=== PATIENT | male | born 1955 | race American Indian/Alaskan Native ===

== ENCOUNTER 2017-10-31 06:50 | Day surgery (SDC) | payer MEDICARE ==
[2017-10-31] MEDS ORDERED: ANCEF/STERILE WATER 2 GM/20 ML IV NR (07:00)
[2017-10-31 09:00] LABS: Basophils # (Auto) 0.1 K/mm3 (0.0-0.1); Basophils % (Auto) 2.8 % (0.0-1.8); Eosinophils # (Auto) 0.3 K/mm3 (0.0-0.4); Eosinophils % (Auto) 7.3 % (0.0-4.3); Hemoglobin 11.1 gm/dl (11.8-15.2); Lymphocytes # (Auto) 1.4 K/mm3 (1.2-5.4); Lymphocytes % (Auto) 34.1 % (13.4-35.0); Mean Corpuscular HGB Conc 34 % (32-34); Mean Corpuscular Hemoglobin 31 pg (28-32); Mean Corpuscular Volume 92 fl (84-94); Monocytes # (Auto) 0.4 K/mm3 (0.0-0.8); Monocytes % (Auto) 9.3 % (0.0-7.3); Platelet Count 223 K/mm3 (140-440); Red Cell Distribution Width 14.4 % (13.2-15.2)
[2017-10-31] MEDS ORDERED: VERSED IV NR (09:00)
[2017-10-31] MEDS ORDERED: LACTATED RINGERS 1,000 ML IV SCH (09:00)
--- NOTE | 2017-10-31 09:00 | Anesthesia Consultation ---
Anesthesia Consult and Med Hx Date of service: 10/31/17 - Airway Anesthetic Teeth Evaluation: Dentures ROM Head & Neck: Adequate Mental/Hyoid Distance: Adequate Mallampati Class: Class III Intubation Access Assessment: Possibly Difficult - Pulmonary Exam CTA: Yes - Cardiac Exam Cardiac Exam: RRR - Pre-Operative Health Status ASA Pre-Surgery Classification: ASA2 Proposed Anesthetic Plan: General - Pulmonary Hx Smoking: Yes (CIGARS) Hx Asthma: No Hx Respiratory Symptoms: No SOB: No Hx Sleep Apnea: No (ABY PRE SCREEN HIGH RISK) - Cardiovascular System Hx Hypertension: Yes Hx Heart Attack/AMI: No - Central Nervous System Hx Seizures: No CVA: No Hx Back Pain: Yes (2/2 renal stones) - Gastrointestinal Hx Gastroesophageal Reflux Disease: No - Endocrine Hx Renal Disease: No Hx Liver Disease: No Hx Non-Insulin Dependent Diabetes: Yes ("pre-diabetes") Hx Thyroid Disease: No - Hematic Hx Anemia: Yes - Other Systems Hx Alcohol Use: Yes (BEER EVERY OTHER DAY) Hx Obesity: Yes
--- NOTE | 2017-10-31 09:00 | Anesthesia Day of Surgery ---
Anesthesia Day of Surgery - Day of Surgery Patient Examined: Yes Patient H&P Reviewed: Yes Patient is NPO: Yes
[2017-10-31] MEDS ORDERED: XYLOCAINE MPF 2% ONE (09:24)
[2017-10-31] MEDS ORDERED: SUBLIMAZE ONE (09:24)
[2017-10-31] MEDS ORDERED: DIPRIVAN 10 MG/ML IV ONE (09:24)
[2017-10-31] MEDS ORDERED: WATER FOR IRRIG STERILE IR ONE ×3 (10:52→10:53)
[2017-10-31] MEDS ORDERED: ZOFRAN ONE (11:56)
--- NOTE | 2017-10-31 12:04 | Short Stay Summary ---
Short Stay Documentation Date of service: 10/31/17 - History H&P: obtained from office - Allergies and Medications Current Medications: Allergies No Known Allergies Allergy (Verified 10/28/17 11:07) Home Medications Medication Instructions Recorded Confirmed Last Taken Type Atenolol [Tenormin] 50 mg PO DAILY 10/28/17 10/31/17 10/31/17 05:00 History AtorvaSTATin [Lipitor] 20 mg PO QHS 10/28/17 10/31/17 10/30/17 History Ibuprofen 800 mg PO PRN PRN 10/28/17 10/31/17 10/25/17 History Tamsulosin HCl [Flomax] 0.4 mg PO DAILY 10/28/17 10/31/17 10/23/17 History traMADol [Ultram] 50 mg PO Q4HR PRN 10/28/17 10/31/17 10/30/17 History Amlodipine Bes/Olmesartan Med 1 tab PO QDAY 10/31/17 10/31/17 10/31/17 05:00 History [Amlodipine-Olmesartan 10-40 mg] Active Medications Cefazolin Sodium (Ancef/Sterile Water 2 Gm/20 Ml) 2 gm IV PREOP NR Stop: 10/31/17 23:59 Hydromorphone HCl (Dilaudid) 0.25 mg IV Q10MIN PRN PRN Reason: Pain, Moderate (4-6) Stop: 10/31/17 15:00 Lactated Ringer's (Lactated Ringers) 1,000 mls @ 100 mls/hr IV DIRECT OSCAR Last Admin: 10/31/17 09:22 Dose: 100 mls/hr Midazolam HCl (Versed) 2 mg IV PREOP NR Stop: 10/31/17 23:59 Last Admin: 10/31/17 09:25 Dose: 2 mg - Brief post op/procedure progress note Date of procedure: 10/31/17 Pre-op diagnosis: bladder stones - large Post-op diagnosis: same Procedure: cysto, rpg, cystogram, lithoclast & holium laser lithotripsy Anesthesia: GETA Surgeon: ALFONSO PEREZ Estimated blood loss: minimal Pathology: none Condition: stable - Hospital course Hospital course: aniya & ariadne on chart - Disposition Condition at discharge: Stable Disposition: DC-01 TO HOME OR SELFCARE Short Stay Discharge Plan Follow up with: STACY BRANCH MD [Primary Care Provider] - 7 Days
[2017-10-31] MEDS ORDERED: NORCO 5/325 PO ONE (12:37)
[2017-10-31] MEDS: DILAUDID IV PRN ×4 (12:48→13:13)
--- NOTE | 2017-10-31 13:10 | Operative Report ---
PREOPERATIVE DIAGNOSIS: Bladder calculi x 2, largest 1.6 cm. POSTOPERATIVE DIAGNOSIS: Bladder calculi x 2, largest 1.6 cm. PROCEDURES: Cystoscopy, bilateral retrograde pyelograms, holmium laser lithotripsy, LithoClast lithotripsy, Ellik extraction of stone fragments, cystogram. SURGEON: Gregory Olguin M.D. ANESTHESIA: General. ESTIMATED BLOOD LOSS: Minimal. FLUIDS: Crystalloid. COMPLICATIONS: No complications. INDICATIONS: This patient is a 62-year-old gentleman seen in the office for back and pelvic pain. CT of abdomen and pelvis revealed lumbar spine disease, also was found to have 2 large stones that could not be removed in the office. Discussed options. The patient agreed to proceed with surgical intervention. DESCRIPTION OF PROCEDURE: The patient was taken to the operative suite, placed in a supine position. After adequate general anesthesia, he was placed in a dorsal lithotomy position, prepped and draped in a sterile fashion. Pancystourethroscopy was performed with a 22-[place] Storz cystoscope with no urethral abnormalities. His prostate did display some mild trilobar obstruction of his bladder. No trabeculation was noted. Two large yellow stones could be appreciated in the bladder. Both ureteral orifices in normal position. Bilateral retrograde pyelograms were obtained with an 8-[place] catheter and 8 mL of contrast. No filling defects or obstruction. Next, using the LithoClast lithotripter, the stone was engaged. Lithotripsy of the stone was performed with minimal fragmentation. Next, using a 500 micron fiber, the holmium laser was turned up to 4 townsend. Holmium lithotripsy was performed. It was increased to a total of increments of 2 townsend, 6 townsend, 8 townsend, total of 16 townsend. Adequate fragmentation of both stones could be appreciated. They were evacuated out with Ellik evacuator. Cystogram, no leak or extravasation. All the fragments were out. Rectal exam was benign. The patient was extubated and taken to recovery room. He will go home on [employer] and [employer], and follow up in the office. JOB# [id number] C/NTS
[2017-10-31 13:28] VITALS: BP 131/83
--- NOTE | 2017-10-31 13:40 | Fluoroscopy Report ---
Cystogram, retrograde pyelogram: Bladder stones. Injection of contrast into each ureter demonstrates a normal appearing ureters and intrarenal collecting systems. Images of the urinary bladder prior to contrast demonstrates faint 2 round densities one on each side of the bladder. When contrast is identified in the bladder these are noted to represent large filling defects consistent with bladder stones. Following apparent removal the calculi the filling defects are no longer identified and the bladder appears grossly normal. Impression: Normal upper urinary tracts. Bladder stones removal.
== END 2017-10-31 13:58 | disposition home or self-care (01) ==
LOC: OR 06:50
PROVIDERS: ATTEND Urology
DX: N21.0 Calculus in bladder (principal); E78.00 Pure hypercholesterolemia, unspecified; I10 Essential (primary) hypertension; M19.90 Unspecified osteoarthritis, unspecified site; F17.290 Nicotine dependence, other tobacco product, uncomplicated; E66.9 Obesity, unspecified; Z68.30 Body mass index [BMI] 30.0-30.9, adult; Z79.899 Other long term (current) drug therapy; Z72.89 Other problems related to lifestyle; Z98.890 Other specified postprocedural states
CPT/HCPCS: 36415; 52317; 74420; 82962; 85025; A4217; C1758; J1170; J2250; J2405; J2704; J3010; J7120; Q9967; 74430

== ENCOUNTER 2017-10-31 22:32 | Emergency (ER) | payer MEDICARE | END 2017-10-31 23:05 | disposition left against medical advice (07) | LOC: ED 22:32 | DX: R39.198 Other difficulties with micturition (principal); Z53.21 Procedure and treatment not carried out due to patient leaving prior to being seen by health care provider ==

== ENCOUNTER 2017-11-01 01:27 | Emergency (ER) | payer MEDICARE ==
[2017-11-01 02:42] LABS: BUN/Creatinine Ratio 14; Blood Urea Nitrogen 15 mg/dL (9-20); Calcium 9.6 mg/dL (8.4-10.2); Hemolysis Index 6
[2017-11-01 02:50] LABS: Bacteria,Urine 1+ /HPF (Negative); Bilirubin,Urine NEG (Negative); Blood,Urine LG (Negative); Color,Urine Yellow (Yellow); Mucus,Urine FEW /HPF; Urobilinogen,Urine < 2.0 mg/dL (<2.0)
[2017-11-01 02:52] LABS: Basophils # (Auto) 0.1 K/mm3 (0.0-0.1); Basophils % (Auto) 0.8 % (0.0-1.8); Eosinophils # (Auto) 0.2 K/mm3 (0.0-0.4); Eosinophils % (Auto) 2.5 % (0.0-4.3); Hematocrit 33.1 % (35.5-45.6); Hemoglobin 11.4 gm/dl (11.8-15.2); Lymphocytes # (Auto) 1.6 K/mm3 (1.2-5.4); Lymphocytes % (Auto) 21.1 % (13.4-35.0); Mean Corpuscular HGB Conc 35 % (32-34); Mean Corpuscular Hemoglobin 31 pg (28-32); Mean Corpuscular Volume 91 fl (84-94); Monocytes # (Auto) 0.6 K/mm3 (0.0-0.8); Monocytes % (Auto) 7.5 % (0.0-7.3); Platelet Count 223 K/mm3 (140-440); Red Blood Count 3.64 M/mm3 (3.65-5.03); Red Cell Distribution Width 14.2 % (13.2-15.2)
[2017-11-01 02:54] LABS: RBC,Urine > 182.0 /HPF (0.0-6.0)
--- NOTE | 2017-11-01 03:57 | Emergency Department Report ---
HPI - General Chief Complaint: Abdominal Pain Time Seen by Provider: 11/01/17 03:46 - HPI HPI: Room 21 The patient is a 62-year-old male presenting with a chief complaint of urinary retention. The patient states earlier this afternoon he had a cystoscopy for bladder stone performed by Dr. Olguin. The patient states he was discharged at 14:30 and when he went home he continued to drink a lot of water. The patient states that 16:00 he noticed decreased urination. The patient states then pressure began building he continued to have suprapubic abdominal pain. The pain was not relieved until he came to the ED and had a Andre catheter placed and patient is currently asymptomatic. The patient states he began a course of ciprofloxacin today. Location: Suprapubic region Duration: Constant since 16:00 Quality: Pressure Severity: Severe Modifying factors: [see above] Context: [see above] Mode of transportation: [not driving] ED Past Medical Hx - Past Medical History Hx Hypertension: Yes Hx Arthritis: Yes Hx Kidney Stones: Yes (BLADDER STONE) - Family History Family history: no significant - Social History Smoking Status: Never Smoker Substance Use Type: Alcohol (occasional) - Medications Home Medications: Home Medications Medication Instructions Recorded Confirmed Last Taken Type Atenolol [Tenormin] 50 mg PO DAILY 10/28/17 10/31/17 10/31/17 05:00 History AtorvaSTATin [Lipitor] 20 mg PO QHS 10/28/17 10/31/17 10/30/17 History Ibuprofen 800 mg PO PRN PRN 10/28/17 10/31/17 10/25/17 History Tamsulosin HCl [Flomax] 0.4 mg PO DAILY 10/28/17 10/31/17 10/23/17 History traMADol [Ultram] 50 mg PO Q4HR PRN 10/28/17 10/31/17 10/30/17 History Amlodipine Bes/Olmesartan Med 1 tab PO QDAY 10/31/17 10/31/17 10/31/17 05:00 History [Amlodipine-Olmesartan 10-40 mg] ED Review of Systems ROS: Stated complaint: URINARY RETENTION Other details as noted in HPI Constitutional: no symptoms reported Eyes: denies: eye pain ENT: denies: throat pain Respiratory: no symptoms reported Cardiovascular: denies: chest pain Endocrine: no symptoms reported Gastrointestinal: abdominal pain Genitourinary: hematuria, other (urinary retention) Musculoskeletal: denies: back pain Neurological: denies: headache Physical Exam - Physical Exam Vital Signs: Vital Signs 11/01/17 11/01/17 01:44 02:20 Temperature 100.2 F H Pulse Rate 100 H 64 Respiratory 22 18 Rate Blood Pressure 145/108 Blood Pressure 150/75 [Left] O2 Sat by Pulse 100 99 Oximetry Physical Exam: GENERAL: The patient is well-developed well-nourished male lying on stretcher not appearing to be in acute distress. [] HEENT: Normocephalic. Atraumatic. Extraocular motions are intact. Patient has moist mucous membranes. NECK: Supple. Trachea midline CHEST/LUNGS: There is no respiratory distress noted. HEART/CARDIOVASCULAR: Regular. There is no tachycardia. There is no gallop rub or murmur. ABDOMEN: Abdomen is soft, nontender. Patient has normal bowel sounds. There is no abdominal distention. SKIN: There is no rash. There is no edema. There is no diaphoresis. NEURO: The patient is awake, alert, and oriented. The patient is cooperative. The patient has normal speech MUSCULOSKELETAL: There is no evidence of acute injury. ED Course Vital Signs 11/01/17 11/01/17 01:44 02:20 Temperature 100.2 F H Pulse Rate 100 H 64 Respiratory 22 18 Rate Blood Pressure 145/108 Blood Pressure 150/75 [Left] O2 Sat by Pulse 100 99 Oximetry ED Medical Decision Making - Lab Data Result diagrams: 11/01/17 01:58 11/01/17 01:58 Laboratory Tests 11/01/17 11/01/17 11/01/17 01:55 01:58 01:58 WBC 7.8 RBC 3.64 L Hgb 11.4 L Hct 33.1 L MCV 91 MCH 31 MCHC 35 H RDW 14.2 Plt Count 223 Lymph % (Auto) 21.1 [place] % (Auto) 7.5 H Eos % (Auto) 2.5 Baso % (Auto) 0.8 Lymph # 1.6 [place] # 0.6 Eos # 0.2 Baso # 0.1 Seg Neutrophils % 68.1 Seg Neutrophils # 5.3 Sodium 134 L Potassium 4.1 Chloride 97.6 L Carbon Dioxide 20 L Anion Gap 21 BUN 15 Creatinine 1.1 Estimated GFR > 60 BUN/Creatinine Ratio 14 Glucose 128 H Calcium 9.6 Urine Color Yellow Urine Turbidity Slightly-cloudy Urine pH 6.0 Ur Specific [place] 1.010 Urine Protein 100 mg/dl Urine Glucose (UA) Neg Urine Ketones Neg Urine Blood Lg Urine Nitrite Neg Urine Bilirubin Neg Urine Urobilinogen < 2.0 Ur Leukocyte Esterase Tr Urine WBC (Auto) 76.0 H Urine RBC (Auto) > 182.0 U Epithel Cells (Auto) < 1.0 Urine Bacteria (Auto) 1+ Urine Mucus Few - Medical Decision Making Patient began a course of ciprofloxacin today so no prescription for antibiotics will be given by myself - Differential Diagnosis urinary retention Critical care attestation.: If time is entered above; I have spent that time in minutes in the direct care of this critically ill patient, excluding procedure time. ED Disposition Clinical Impression: Acute urinary retention, Acute abdominal pain, UTI (urinary tract infection) Disposition: TO HOME OR SELFCARE Is pt being admited?: No Does the pt Need Aspirin: No Condition: Stable Instructions: Urinary Retention in Men (ED), Andre Catheter Placement and Care (ED), Urinary Leg Bag (GEN) Additional Instructions: Return to the emergency department immediately should you develop worsening symptoms, fever, inability to tolerate food or liquid or any other concerns. Referrals: ALFONSO OLGUIN MD [Staff Physician] - [facility] Time of Disposition: 04:01
[2017-11-01 05:07] VITALS: BP 131/64
== END 2017-11-01 05:07 | disposition home or self-care (01) ==
LOC: ED 01:27
DX: N39.0 Urinary tract infection, site not specified (principal); I10 Essential (primary) hypertension; M19.90 Unspecified osteoarthritis, unspecified site; Z87.442 Personal history of urinary calculi
CPT/HCPCS: 36415; 51702; 80048; 81001; 85025

== ENCOUNTER 2019-12-10 06:08 | Observation (INO) | payer MEDICARE ==
[2019-12-06 09:02] LABS: Hematocrit 32.1 % (35.5-45.6); Hemoglobin 10.7 gm/dl (11.8-15.2); Mean Corpuscular HGB Conc 33 % (32-34); Mean Corpuscular Volume 94 fl (84-94); Platelet Count 230 K/mm3 (140-440); Red Blood Count 3.41 M/mm3 (3.65-5.03); Red Cell Distribution Width 14.9 % (13.2-15.2)
[2019-12-06 09:16] LABS: Alanine Aminotransferase 23 units/L (7-56); Albumin 4.4 g/dL (3.9-5); BUN/Creatinine Ratio 19; Blood Urea Nitrogen 19 mg/dL (9-20); Calcium 9.4 mg/dL (8.4-10.2); Hemolysis Index 4
--- NOTE | 2019-12-06 15:45 | Anesthesia Consultation ---
Anesthesia Consult and Med Hx Date of service: 12/06/19 - Airway Anesthetic Teeth Evaluation: Edentulous (upper) ROM Head & Neck: Adequate Mental/Hyoid Distance: Adequate Mallampati Class: Class III Intubation Access Assessment: Possibly Difficult - Pulmonary Exam CTA: Yes - Cardiac Exam Cardiac Exam: RRR - Pre-Operative Health Status ASA Pre-Surgery Classification: ASA2 Proposed Anesthetic Plan: General - Pulmonary Hx Smoking: Yes (CIGARS AND MARIJUANA) Hx Respiratory Symptoms: No Hx Sleep Apnea: No (ABY PRE SCREEN HIGH RISK) - Cardiovascular System Hx Hypertension: Yes Hx Heart Attack/AMI: No Hx Percutaneous Transluminal Coronary Angioplasty (PTCA): No Hx Cardia Arrhythmia: No - Central Nervous System CVA: No Hx Back Pain: Yes - Gastrointestinal Hx Gastroesophageal Reflux Disease: Yes - Endocrine Hx Renal Disease: No Hx Liver Disease: No Hx Non-Insulin Dependent Diabetes: Yes (borderline DM - no meds) Hx Thyroid Disease: No - Hematic Hx Anemia: Yes Hx Sickle Cell Disease: No - Other Systems Hx Alcohol Use: Yes (occasional beer) Hx Substance Use: Yes (THC) Hx Obesity: Yes (BMI 30) - Additional Comments Anesthesia Medical History Comments: No hx anesthetic complications.
[~2019-12-10 06:08] MED LIST: ACETAMINOPHEN 500 MG TAB PO SCH; LACTATED RINGERS 1,000 ML IV SCH; MIDAZOLAM 2 MG/2 ML INJ IV NR; ceFAZolin/STERILE WATER 2 GM/20 ML SYRINGE IV NR
[2019-12-10] MEDS ORDERED: BACTERIOSTATIC SODIUM CHLORIDE 0.9% 30 ML VIAL INFILTRATI ONE (06:12)
[2019-12-10] MEDS ORDERED: fentaNYL 100 MCG/2 ML INJ IV SCH (07:16)
[2019-12-10] MEDS ORDERED: propofoL 200 MG/20 ML VIAL IV ONE (07:20)
[2019-12-10] MEDS ORDERED: HYDROmorphone 1 MG/1 ML INJ ONE (07:20)
[2019-12-10] MEDS ORDERED: LIDOCAINE MPF (2%) 20 MG/1 ML VIAL 5 ML ONE (07:21)
[2019-12-10] MEDS ORDERED: fentaNYL 100 MCG/2 ML INJ IV PRN (07:25)
--- NOTE | 2019-12-10 07:25 | Anesthesia Day of Surgery ---
Anesthesia Day of Surgery - Day of Surgery Patient Examined: Yes Patient H&P Reviewed: Yes Patient is NPO: Yes
[2019-12-10] MEDS ORDERED: ePHEDrine SULFATE 50 MG/1 ML INJ ONE (08:15)
[2019-12-10] MEDS ORDERED: ONDANSETRON 4 MG/2 ML INJ ONE (08:52)
[2019-12-10] MEDS ORDERED: SODIUM CHLORIDE 0.9% IRRIG SOLN 3000 ML IR ONE (09:00)
--- NOTE | 2019-12-10 09:10 | Short Stay Summary ---
Short Stay Documentation Date of service: 12/10/19 - History H&P: obtained from office - Allergies and Medications Current Medications: Allergies No Known Allergies Allergy (Verified 10/28/17 11:07) Home Medications Medication Instructions Recorded Confirmed Last Taken Type AtorvaSTATin [Lipitor] 20 mg PO QHS 10/28/17 12/05/19 12/09/19 History Tamsulosin HCl [Flomax] 0.4 mg PO DAILY 10/28/17 12/05/19 12/09/19 History atenoloL [Tenormin] 50 mg PO DAILY 10/28/17 12/05/19 10/31/17 05:00 History Amlodipine Bes/Olmesartan Med 1 tab PO QDAY 10/31/17 12/05/19 12/09/19 History [Amlodipine-Olmesartan 10-40 mg] Meloxicam 15 mg PO PRN PRN 12/03/19 12/10/19 5 Days Ago History ~12/05/19 Tylenol /Codeine # 3 tab 1 mg PO PRN 12/03/19 12/10/19 12/08/19 History Active Medications Acetaminophen (Tylenol) 1,000 mg PO PREOP OSCAR Last Admin: 12/10/19 06:40 Dose: 1,000 mg Documented by: Cefazolin Sodium (Ancef/Sterile Water 2 Gm/20 Ml) 2 gm IV PREOP NR Stop: 12/10/19 23:00 Fentanyl (Sublimaze) 100 mcg IV ONCE OSCAR Stop: 12/10/19 09:16 Last Admin: 12/10/19 07:20 Dose: 100 mcg Documented by: Fentanyl (Sublimaze) 50 mcg IV Q5MIN PRN PRN Reason: Pain , Severe (7-10) Lactated Ringer's (Lactated Ringers) 1,000 mls @ 100 mls/hr IV DIRECT OSCAR Stop: 12/10/19 23:59 Last Admin: 12/10/19 06:50 Dose: 100 mls/hr Documented by: Midazolam HCl (Versed) 2 mg IV PREOP NR Stop: 12/10/19 23:59 Last Admin: 12/10/19 06:52 Dose: 2 mg Documented by: - Brief post op/procedure progress note Date of procedure: 12/10/19 Pre-op diagnosis: bladder stone, BPH Procedure: cysto, removal bladder stone, TURP Anesthesia: GETA Surgeon: ALFONSO PEREZ Estimated blood loss: minimal Pathology: list (prostate chips) Specimen disposition: to lab Condition: stable - Hospital course Hospital course: bactrim & norco on chart jones looks good - Disposition Condition at discharge: Stable Short Stay Discharge Plan Follow up with: STACY BRANCH MD [Primary Care Provider] - 7 Days
--- NOTE | 2019-12-10 09:32 | Fluoroscopy Report ---
Fluoroscopy retrograde urography HISTORY: Bladder stones COMPARISON: 10/31/2017 FINDINGS: 0.3 minutes of fluoroscopy time was provided by radiology during retrograde urography. 7 fl uoroscopic images are presented which demonstrate normal filling of the bilateral renal collecting sy stems. No filling defect or abnormal dilatation. Bladder stone removal was performed by urology. Plea se correlate with the procedural report. Signer Name: David De Dios Jr, MD Signed: 12/10/2019 9:28 AM Workstation Name: [id number]
[2019-12-10] MEDS ORDERED: LOSARTAN 50 MG TAB PO SCH ×2 (09:41→10:00)
[2019-12-10] MEDS ORDERED: SODIUM CHLORIDE 0.9% 1000 ML 1,000 ML ONE (09:55)
[2019-12-10] MEDS ORDERED: OLMESARTAN MED PO SCH (10:00)
[2019-12-10] MEDS ORDERED: amLODIPine 10 MG TAB PO SCH ×2 (10:00→11:00)
[2019-12-10] MEDS ORDERED: NALOXONE 0.4 MG/1 ML INJ IV PRN (10:00)
[2019-12-10] MEDS ORDERED: ONDANSETRON 4 MG/2 ML INJ IV PRN (10:00)
[2019-12-10] MEDS ORDERED: atenoloL 50 MG TAB PO SCH (10:00)
[2019-12-10] MEDS ORDERED: [UNRECOGNIZED DRUG - OTHER] PO SCH (10:00)
[2019-12-10] MEDS ORDERED: AMLODIPINE BES PO SCH (10:00)
[2019-12-10] MEDS ORDERED: HYDROcodone/ACETAMINOPHEN 5-325 MG TAB PO PRN (10:00)
--- NOTE | 2019-12-10 11:33 | Post Anesthesia Evaluation ---
- Post Anesthesia Evaluation Patient Participated: Yes Airway Patent: Yes Stable Respiratory Function: Yes Nausea/Vomiting: No Temp > 96.8F: Yes Pain Manageable: Yes Adequeate Hydration: Yes Anesthesia Complications: No
--- NOTE | 2019-12-10 11:41 | Consultation ---
History of Present Illness - Reason for Consult Consult date: 12/10/19 Requesting physician: ALFONSO PEREZ - History of Present Illness 64-year-old male with past medical history of BPH, bladder stone borderline diabetes mellitus type 2, hypertension and hypercholesterolemia who presents to the hospital for cystoscopy, removal of bladder stone and TURP. Patient r eportedly tolerated the procedure well and was admitted to the floor post procedure. Urology consulted hospitalist service for management of the above medical problems. Patient denies any chest pain or shortness of breath. No headache or visual disturbances. No cough or cold-like symptoms. Past History Past Medical History: diabetes, hypertension, hyperlipidemia, other (BPH, bladder stone) Past Surgical History: No surgical history Social history: no significant social history Medications and Allergies Allergies Allergy/AdvReac Type Severity Reaction Status Date / Time No Known Allergies Allergy Verified 10/28/17 11:07 Home Medications Medication Instructions Recorded Confirmed Last Taken Type AtorvaSTATin [Lipitor] 20 mg PO QHS 10/28/17 12/05/19 12/09/19 History Tamsulosin HCl [Flomax] 0.4 mg PO DAILY 10/28/17 12/05/19 12/09/19 History atenoloL [Tenormin] 50 mg PO DAILY 10/28/17 12/05/19 10/31/17 05:00 History Amlodipine Bes/Olmesartan Med 1 tab PO QDAY 10/31/17 12/05/19 12/09/19 History [Amlodipine-Olmesartan 10-40 mg] Meloxicam 15 mg PO PRN PRN 12/03/19 12/10/19 5 Days Ago History ~12/05/19 Tylenol /Codeine # 3 tab 1 mg PO PRN 12/03/19 12/10/19 12/08/19 History Active Meds: Active Medications Acetaminophen (Tylenol) 1,000 mg PO PREOP OSCAR Last Admin: 12/10/19 06:40 Dose: 1,000 mg Documented by: Hydrocodone Bitart/Acetaminophen ([place] 5/325) 2 each PO Q4H PRN PRN Reason: Pain, Moderate (4-6) Amlodipine Besylate (Amlodipine) 10 mg PO DAILY OSCAR Atenolol (Tenormin) 50 mg PO DAILY OSCAR Atorvastatin Calcium (Lipitor) 20 mg PO QHS OSCAR Cefazolin Sodium (Ancef/Sterile Water 2 Gm/20 Ml) 2 gm IV PREOP NR Stop: 12/10/19 23:00 Fentanyl (Sublimaze) 50 mcg IV Q5MIN PRN PRN Reason: Pain , Severe (7-10) Lactated Ringer's (Lactated Ringers) 1,000 mls @ 100 mls/hr IV DIRECT OSCAR Cefazolin Sodium (Ancef/Ns 1 Gm/50 Ml) 1 gm in 50 mls @ 100 mls/hr IV Q8H OSCAR; Protocol Stop: 12/10/19 22:29 Losartan Potassium (Cozaar) 100 mg PO DAILY OSCAR Midazolam HCl (Versed) 2 mg IV PREOP NR Stop: 12/10/19 23:59 Last Admin: 12/10/19 06:52 Dose: 2 mg Documented by: Morphine Sulfate (Morphine) 2 mg IV Q4H PRN PRN Reason: Pain, Moderate (4-6) Naloxone HCl (Naloxone) 0.1 mg IV Q2MIN PRN PRN Reason: Res Rate </= 8 or 02 SAT < 92% Ondansetron HCl (Zofran) 4 mg IV Q8H PRN PRN Reason: Nausea And Vomiting Sodium Chloride (Nacl 0.9%) 2,000 ml IR DIRECT OSCAR Zolpidem Tartrate (Ambien) 5 mg PO QHS PRN PRN Reason: Sleep Review of Systems All systems: negative Exam - Constitutional Vitals: Temp Pulse Resp BP Pulse Ox 97.8 F 62 22 129/78 99 12/10/19 10:16 12/10/19 10:16 12/10/19 10:16 12/10/19 10:16 12/10/19 10:16 General appearance: Present: no acute distress, well-nourished - EENT Eyes: Present: PERRL ENT: hearing intact, clear oral mucosa - Neck Neck: Present: supple, normal ROM - Respiratory Respiratory effort: normal Respiratory: bilateral: CTA - Cardiovascular Heart Sounds: Present: S1 & S2. Absent: rub, click - Extremities Extremities: pulses symmetrical, No edema Peripheral Pulses: within normal limits - Abdominal General gastrointestinal: Present: soft, non-tender, non-distended, normal bowel sounds Male genitourinary: Present: normal - Integumentary Integumentary: Present: clear, warm, dry - Musculoskeletal Musculoskeletal: gait normal, strength equal bilaterally - Psychiatric Psychiatric: appropriate mood/affect, intact judgment & insight - Neurologic Neurologic: CNII-XII intact, moves all extremities Results - Labs CBC & Chem 7: 12/06/19 08:55 12/06/19 08:55 Labs: Abnormal lab results 12/10/19 12/10/19 Range/Units 07:08 10:16 POC Glucose 123 H 126 H (70-105) mg/dL Assessment and Plan BPH. Patient status post TURP. Continue per urology recommendations. Bladder stone. Status post removal. Hypertension. Continue home antihypertensive medication of Norvasc. Monitor BP closely. Diabetes mellitus type 2, diet controlled. Accu-Cheks before meals and at bedtime and sliding scale insulin. Hyperlipidemia. Continue statin.
[2019-12-10] MEDS ORDERED: DEXTROSE 50% IN WATER (25GM) 50 ML SYRINGE IV PRN (12:00)
--- NOTE | 2019-12-10 12:12 | Operative Report ---
PREOPERATIVE DIAGNOSES: Bladder stone, 2 cm -- benign prostatic hypertrophy. POSTOPERATIVE DIAGNOSES: Bladder stone, 2 cm -- benign prostatic hypertrophy. PROCEDURE: Cystoscopy, bilateral retrograde pyelograms, holmium laser lithotripsy of bladder stone, transurethral resection of the prostate. SURGEON: Gregory Olguin MD ANESTHESIA: General. ESTIMATED BLOOD LOSS: Minimal. FLUIDS: Crystalloid. COMPLICATIONS: No complications. INDICATIONS: This patient is a 64-year-old gentleman known to my service with a history of bladder stone in the past and is status post endoscopic extraction. He was noted to have some mild BPH. However, he now has a recurrent bladder stone with hematuria. Stone on CT is 2 cm. He presents now for treatment of his stone as well as resection of the prostate. Risks, benefits and complications were explained. DESCRIPTION OF PROCEDURE: The patient was taken to the operative suite, placed in a supine position. After adequate general anesthesia, placed in a dorsal lithotomy position, prepped and draped in a sterile fashion. Pancystourethroscopy was performed with a 22-[place] Storz cystoscope, had some mild stenosis of the proximal urethra. A 22-[place] scope could traverse without difficulty. Prostate displayed moderate trilobar obstruction, bladder, obvious 2 cm yellow stone. No tumors could be appreciated. Both ureteral orifices in normal position. Bilateral retrograde pyelograms were obtained with an 8-[place] catheter and 8 mL of contrast. No filling defects or obstruction. He did have some J hooking. Next, using a 500 micron holmium laser, lithotripsy of the bladder stone was performed starting at 4 townsend going up to 10 townsend, was able to fragment the stone. The fragments were evacuated out with the Ellik evacuator. Next, using a medium resectoscope cutting and coag on 160 and 60, transurethral resection of the prostate was performed, taken down the median lobe and right and left lateral lobes respectively. Chips were evacuated with the Ellik evacuator. Adequate hemostasis was achieved. Upon reevaluation, ____ was intact. No bladder stones. Ureteral orifices intact as well. A 22-[place] 3-way catheter was placed with stylet, irrigated, pink tinged. The patient tolerated the procedure well and was extubated and taken to recovery room. Rectal exam was benign. He will be observed overnight and go home on Bactrim and [place]ws. JOB# [id number]/IAN
[2019-12-10] MEDS: INSULIN REGULAR, HUMAN 100 UNIT/ML 3ML VIAL SUB-Q SCH ×3 (12:48→22:51)
[2019-12-10] MEDS: LACTATED RINGERS 1,000 ML IV SCH (15:00)
[2019-12-10] MEDS: ceFAZolin/NS 1 GM/50 ML 1 GM/50 ML BAG IV SCH ×2 (15:46→22:58)
[2019-12-10] MEDS ORDERED: SODIUM CHLORIDE 0.9% IRR 1,000 ML BOTTLE IR PRN (18:50)
[2019-12-10] MEDS: SODIUM CHLORIDE 0.9% IRRIG SOLN 2000 ML IR SCH (21:00)
[2019-12-10] MEDS ORDERED: ZOLPIDEM 5 MG TAB PO PRN (21:00)
[2019-12-10] MEDS: MORPHINE 2 MG/1 ML INJ IV PRN (22:58)
[2019-12-11] MEDS: SODIUM CHLORIDE 0.9% IRRIG SOLN 2000 ML IR SCH ×2 (04:01)
[2019-12-11] MEDS: LACTATED RINGERS 1,000 ML IV SCH (04:30)
[2019-12-11 06:03] LABS: Basophils # (Auto) 0.1 K/mm3 (0.0-0.1); Basophils % (Auto) 0.7 % (0.0-1.8); Eosinophils # (Auto) 0.2 K/mm3 (0.0-0.4); Eosinophils % (Auto) 2.9 % (0.0-4.3); Hematocrit 30.9 % (35.5-45.6); Hemoglobin 10.2 gm/dl (11.8-15.2); Lymphocytes # (Auto) 1.6 K/mm3 (1.2-5.4); Lymphocytes % (Auto) 20.6 % (13.4-35.0); Mean Corpuscular HGB Conc 33 % (32-34); Mean Corpuscular Volume 96 fl (84-94); Monocytes # (Auto) 0.8 K/mm3 (0.0-0.8); Monocytes % (Auto) 10.5 % (0.0-7.3); Platelet Count 181 K/mm3 (140-440); Red Blood Count 3.22 M/mm3 (3.65-5.03); Red Cell Distribution Width 15.1 % (13.2-15.2)
[2019-12-11 06:34] LABS: BUN/Creatinine Ratio 10; Blood Urea Nitrogen 9 mg/dL (9-20); Calcium 8.8 mg/dL (8.4-10.2); Hemolysis Index 21
[2019-12-11] MEDS: MORPHINE 2 MG/1 ML INJ IV PRN (07:19)
[2019-12-11 07:34] VITALS: BP 121/76
== END 2019-12-11 09:56 | disposition home or self-care (01) ==
LOC: OR 06:08 → 3B 09:10
PROVIDERS: ADMIT Urology; ATTEND Urology
DX: N21.0 Calculus in bladder (principal); Z20.828 Contact with and (suspected) exposure to other viral communicable diseases; N40.1 Benign prostatic hyperplasia with lower urinary tract symptoms; R33.8 Other retention of urine; I10 Essential (primary) hypertension; E11.9 Type 2 diabetes mellitus without complications; E78.5 Hyperlipidemia, unspecified; M48.8X6 Other specified spondylopathies, lumbar region
CPT/HCPCS: 36415; 52005; 52601; 74420; 80048; 80053; 82962; 83036; 85025; 85027; 86850; 86900; 86901; 88305; 96361; 96365; 96366; 96375; 96376; A4217; A9270; G0378; J0690; J1170; J2250; J2270; J2405; J2704; J3010; J7030; J7120; Q9967; U0003; 88344; J1815